=== PATIENT | male | born 1970 | race Caucasian/White ===

== ENCOUNTER 2018-08-14 19:41 | Observation (INO) | payer MEDICARE, MEDICAID ==
[~2018-08-14] VITALS: Ht 182.9 cm; Wt 132.9 kg
[~2018-08-14 19:41] MED LIST: AMBIEN5 MG PO; AMOXICILLIN500 MG PO; BAYER ADVANCED325 MG PO; CARVEDILOL25 MG PO; CELEXA40 M1 PO; HUMALOG KWI100 MG/ML SC; LANTUS100 MG/ML SC; LEVAQUIN500 MG PO; LIPITOR20 M1 PO; LISINOPRIL20 MG PO; LORTAB 10-325 M1 TAB PO; LORTAB 5/3255 MG PO; NOVOLIN 70/30 SC; NOVOLOG MIX SC; PERCOCET 10/31 COMBO PO; PLAVIX75 MG PO; ULTRAM50 M1 PO; ULTRAM50 MG PO; XANAX0.25 MG PO
--- NOTE | 2018-08-14 19:53 | NUR ---
BROUGHT IMMEDIATELY TO ROOM
--- NOTE | 2018-08-14 19:54 | NUR ---
PT. WITH C/O MIDSTERNAL CP STARTING A FEW HR'S AGO PT. STATES HIS CP IS NOW A 2ON ACSLE OF 1-10. SKIN WARM AND DRY TO TOUCH, COLOR WNL, RESP. EVEN AND UNLABORED. BILATERAL LUNG NEELY ARE CTA, NO EDEMA NOTED TO BLE.
[2018-08-14 20:19] LABS: HEMATOCRIT 43.4 % (39.0-50.0); HEMOGLOBIN 14.6 g/dl (14.0-18.0); IMMATURE GRANULOCYTES 0.5 % (0.0-5.0); MEAN CELL VOLUME 87.5 fL CALC (80.0-100.0); MEAN CORPUSCULAR HGB 29.4 pG CALC (26.0-32.0); MEAN CORPUSCULAR HGB CONC 33.6 g/L CALC (32.0-36.0); NEUT# 8.31 thou/uL (1.82-7.42); RED BLOOD COUNT 4.96 mill/uL (4.70-6.10); RED CELL DISTRI WIDTH 14.1 % (11.5-15.5)
[2018-08-14 20:32] LABS: ALBUMIN 4.2 g/dL (3.2-5.0); ALKALINE PHOSPHATASE 75 u/l (38-126); AMYLASE 77 u/l (30-110); ANION GAP 15 (6-22 (CALC)); BILIRUBIN, TOTAL 0.5 mg/dL (0.0-1.4); BUN 44 mg/dL (9-20); BUN/CREATININE RATIO 28 (12-20 (CALC)); CARBON DIOXIDE 25 mmol/l (22-30); CHLORIDE 105 mmol/l (95-108); CREATININE 1.6 mg/dL (0.7-1.3); GFR 46 ML/MIN (>=60 (CALC)); GFR FOR AFR.AMER. 56 ML/MIN (>=60 (CALC)); LIPASE 179 u/l (23-300); SGOT/AST 17 u/l (17-59); SODIUM 140 mmol/l (137-146); TOTAL PROTEIN 7.4 g/dL (6.3-8.2)
--- NOTE | 2018-08-14 20:36 | NUR ---
NITROGLYCERIN OINT APPLIED PER MD ORDER.
--- NOTE | 2018-08-14 20:36 | NUR ---
PT. STATES HIS CP IS COMPLETLY RESOLVED OF THIS TIME.
[2018-08-14 20:40] LABS: MYOGLOBIN 145 ng/mL (0 - 121)
[2018-08-14 20:45] LABS: POTASSIUM 5.2 mmol/l (3.5-5.1)
[2018-08-14] MEDS ORDERED: BELSOMRA5 MG PO (20:45)
[2018-08-14] MEDS ORDERED: BASAGLAR K100 UNIT/M SC (20:46)
[2018-08-14] MEDS ORDERED: FENOFIBRATE145 MG PO (20:47)
[2018-08-14] MEDS ORDERED: [UNRECOGNIZED DRUG - SUPPLY] PO (20:47)
[2018-08-14] MEDS ORDERED: TIZANIDINE HCL4 M1 PO (20:48)
[2018-08-14] MEDS ORDERED: VIIBRYD20 MG PO (20:48)
[2018-08-14] MEDS ORDERED: FUROSEMIDE20 MG PO (20:49)
[2018-08-14] MEDS ORDERED: LISINOPRIL10 MG PO (20:50)
[2018-08-14 20:54] LABS: ACT PARTIAL THROMBO TIME 24.5 SECONDS (20.0-32.5); PROTHROMBIN TIME 10.6 SECONDS (9.0-12.5)
--- NOTE | 2018-08-14 21:36 | NUR ---
PT. REMAINS CP FREE AT THIS TIME.
--- NOTE | 2018-08-14 22:40 | NUR ---
PT. C/O MD NAHEED AWARE.
--- NOTE | 2018-08-14 22:57 | NUR ---
PO PAIN MED GIVEN PER MD ORDER.
--- NOTE | 2018-08-14 22:58 | NUR ---
MEDICATED PT WITH PAIN MEDICATION PER MD ORDERS AND MAR. LIGHTS TURND OFFF IN ROOM FOR PT COMFORT. EXPLAINED THAT THE WAIT TO GO UPSTAIRS WOULD BE A LITTLE LONGER. PT AND SPOUSE VERBALIZED UNDERSTANDING
--- NOTE | 2018-08-14 23:22 | NUR ---
Admission Note Report Given to: LANDRY MENDEZ Transported by: Wheelchair X Stretcher Transported with: X Nurse Transporter X Patent IV O2 X Fur Examiner
--- NOTE | 2018-08-14 23:22 | NUR ---
PT. TAKEN TO [place] FLOOR VIA STRETCHER.
[2018-08-14 23:42] VITALS: BP 137/74
--- NOTE | 2018-08-15 | NUR ---
PATIENT ADMITTED FROM ER VIA STRETCHER WITH ER STAFF IN ATTENDANCE. PATIENT ABLE TO GO TO STANDING SCALE AND THEN TO BED. STEADY GAIT. PATIENT IS AWAKE ALERT AND ORIENTEDX3. PATIENT DENIES ANY PAIN AT THIS TIME. NO SOB NOTED. VS TAKEN AND RECORDED. PATIENT STATES THAT HE HAS HISTORY OF MRSA AND NASAL SWAB OBTAINED. VOIDED TERRI URINE IN URINAL AND URINE SPEC OBTAINED AND SENT TO LAB. PATIENT PLACED ON CONTACT PRECAUTIONS FOR H/O MRSA. PATIENT WITH HISTORY OF DIAB,HEART DIEASE, HTN, RENAL INSUFFIENCY, DEPRESSION AND ANXIETY. HX OF CABG AND CARDIAC STENTS. PATIENT WITH IV SITE TO LEFT AC-SITE APPEARS HEALTHY AT THIS TIME. LUNGS ARE CLEAR. ORIENTED PATIENT TO ROOM AND SURROUNDINGS. INSTRUCTED ON USE OF NURSE CALL LIGHT AND TV REMOTE. CALL LIGHT IN REACH. WILL CONT TO MONITOR. IT. [PATIENT IS
[2018-08-15 01:28] LABS: URINE BILIRUBIN - DIPSTICK NEGATIVE (NEGATIVE); URINE BLOOD DIPSTICK MODERATE (NEGATIVE); URINE CLARITY SL CLOUDY; URINE COLOR YELLOW; URINE GLUCOSE - DIPSTICK 100 mg/dL (NEGATIVE); URINE KETONE NEGATIVE (NEGATIVE); URINE LEUK ESTERASE NEGATIVE (NEGATIVE); URINE NITRITE - DIPSTICK NEGATIVE (Negative); URINE PH 5.5 (4.5-8.0); URINE PROTEIN - DIPSTICK 30 mg/dL (NEG-TRACE); URINE UROBILINOGEN - DIPSTICK 0.2 E.U./dL (0.2)
[2018-08-15 01:35] LABS: URINE SQUAMOUS EPITHELIAL CELL FEW EPI/hpf (0-FEW)
[2018-08-15 01:36] LABS: URINE BACTERIA FEW hpf
[2018-08-15 04:25] VITALS: BP 159/70
--- NOTE | 2018-08-15 04:51 | NUR ---
PATIENT RESTING IN BED-C/O SEVERE HEADACHE. NITOR OINT PATCH REMOVED AND PATIENT MEDICATED WITH TYLENOL 650MG PO FOR HEADACHE. TELE MONITOR IN PLACE. DENIES ANY CHEST PAIN. CALL LIGHT IN REACH. WILL CONT TO MONITOR.
--- NOTE | 2018-08-15 07:20 | NUR ---
REPORT RECIEVED FROM LANDRY MENDEZ. PT SITTING ON SIDE OF BED. NO S/S OF DISTRESS NOTED. PT DENIES ANY NEEDS AT THIS TIME. CALL LIGHT IN REACH. WILL CONTINUE TO MONITOR.
[2018-08-15 07:45] VITALS: BP 141/59
--- NOTE | 2018-08-15 07:45 | NUR ---
PT ASSESSMENT COMPLETE. PT A/O X3. SPEECH IS CLEAR. RESP EVEN AND UNLABORED. LUNG SOUNDS CLEAR. TELE IN PLACE. NO C/O CHEST PAIN. ABDOMEN ROUND, SOFT. BOWEL SOUNDS ACTIVE X4. STRONG RADIAL AND PEDAL PULSES. #20 RAC SL. FLUSHED AND PATENT. IV SITE APPEARS HEALTHY. PLAN OF CARE DISCUSSED. PT STATES UNDERSTANDING. SAFETY PRECAUTIONS IN PLACE. CALL LIGHT IN REACH. PT DENIES ANY NEEDS AT THIS TIME. WILL CONTINUE TO MONITOR.
--- NOTE | 2018-08-15 11:15 | NUR ---
AT BEDSIDE DISCUSSING POC.
[2018-08-15] MEDS ORDERED: ZITHROMAX250 MG PO (11:20)
--- NOTE | 2018-08-15 11:37 | NUR ---
Discharge instructions given. Patient verbalizes understanding of same. Discharged in stable condition via Ambulatory to Home with spouse. All belongings sent with pt. PT REFUSES WHEELCHAIR FOR DISCHARGE. PT ALSO REFUSED SCHEDULED NOVOLOG FOR BS OF 440.PRESCRIPTION DISCUSSED. PT VERBALIZES UNDERSTANDING. PT DENIES ANY OTHER NEEDS.
[2018-08-15 16:59] LABS: CHOLESTEROL HDL RATIO 5.4 (<4.4 (CALC))
== END 2018-08-15 11:37 | disposition home or self-care (01) ==
LOC: ED 19:41 → ED-I 22:00 → ED 22:34 → MS2 22:35
PROVIDERS: Emergency Medicine; Nurse Practitioner Family; ADMIT Internal Medicine; ATTEND Internal Medicine
DX: R07.89 Other chest pain (principal); J20.9 Acute bronchitis, unspecified; I25.10 Atherosclerotic heart disease of native coronary artery without angina pectoris; I10 Essential (primary) hypertension; E11.65 Type 2 diabetes mellitus with hyperglycemia; E11.40 Type 2 diabetes mellitus with diabetic neuropathy, unspecified; E11.21 Type 2 diabetes mellitus with diabetic nephropathy; E78.5 Hyperlipidemia, unspecified; F41.0 Panic disorder [episodic paroxysmal anxiety]; F17.210 Nicotine dependence, cigarettes, uncomplicated; Z95.1 Presence of aortocoronary bypass graft; Z95.5 Presence of coronary angioplasty implant and graft; Z79.4 Long term (current) use of insulin; Z91.14 Patient's other noncompliance with medication regimen

== ENCOUNTER → 2018-12-27 | Outpatient (REF) | payer MEDICARE, MEDICAID ==
[~2018-12-27] MED LIST changes: +AMLODIPINE5 MG PO; +BASAGLAR K100 UNIT/M SC; +BELSOMRA5 MG PO; +FENOFIBRATE145 MG PO; +FUROSEMIDE20 MG PO; +LISINOPRIL10 MG PO; +TIZANIDINE HCL4 M1 PO; +TRAZODONE50 MG PO; +VIIBRYD20 MG PO; +ZITHROMAX250 MG PO; +ZOLPIDEM10 MG PO; +[UNRECOGNIZED DRUG - SUPPLY] PO
[2018-12-27 10:17] LABS: IMMATURE GRANULOCYTES 0.6 % (0.0-5.0); MEAN CORPUSCULAR HGB CONC 32.1 g/L CALC (32.0-36.0); NEUT# 4.76 thou/uL (1.82-7.42); RED BLOOD COUNT 6.01 mill/uL (4.70-6.10); RED CELL DISTRI WIDTH 16.2 % (11.5-15.5)
[2018-12-27 10:18] LABS: HEMATOCRIT 48.6 % (39.0-50.0); HEMOGLOBIN 15.6 g/dl (14.0-18.0); MEAN CELL VOLUME 80.9 fL CALC (80.0-100.0)
[2018-12-27 11:28] LABS: URINE BILIRUBIN - DIPSTICK NEGATIVE (NEGATIVE); URINE BLOOD DIPSTICK MODERATE (NEGATIVE); URINE COLOR YELLOW; URINE GLUCOSE - DIPSTICK NEGATIVE (NEGATIVE); URINE KETONE NEGATIVE (NEGATIVE); URINE LEUK ESTERASE NEGATIVE (Negative); URINE NITRITE - DIPSTICK NEGATIVE (Negative); URINE PH 5.5 (4.5-8.0); URINE PROTEIN - DIPSTICK 30 mg/dL (NEG-TRACE); URINE SPECIFIC GRAVITY 1.025; URINE UROBILINOGEN - DIPSTICK 0.2 E.U./dL (0.2)
[2018-12-27 11:29] LABS: URINE CLARITY SL CLOUDY
[2018-12-27 11:30] LABS: URINE EPITHELIAL CELLS FEW EPI/hpf (0-FEW); URINE MUCUS FEW hpf (NONE-FEW)
[2018-12-27 11:58] LABS: ALBUMIN 3.8 g/dL (3.2-5.0); CREATININE 1.5 mg/dL (0.7-1.3)
[2018-12-27 11:59] LABS: POTASSIUM 5.3 mmol/l (3.5-5.1)
== END | disposition home or self-care (01) ==
LOC: LAB 09:41
PROVIDERS: ATTEND Internal Medicine Nephrology
DX: N18.3 Chronic kidney disease, stage 3 (moderate) (principal); D63.1 Anemia in chronic kidney disease; N25.81 Secondary hyperparathyroidism of renal origin

== ENCOUNTER 2019-02-06 20:34 | Observation (INO) | payer MEDICARE, MEDICAID ==
[~2019-02-06] VITALS: Ht 182.9 cm; Wt 130.0 kg
[~2019-02-06 20:34] MED LIST changes: -AMLODIPINE5 MG PO; -TRAZODONE50 MG PO; -ZOLPIDEM10 MG PO
--- NOTE | 2019-02-06 20:35 | NUR ---
Pt immediately to room # 6 via W/C. Pt placed on cardiac, SAO2, and BP monitors.
--- NOTE | 2019-02-06 20:36 | NUR ---
PT. WITH C/O FEELING WEAK AND DIZZY SINCE THIS AM.
[2019-02-06 21:24] LABS: HEMATOCRIT 42.9 % (39.0-50.0); HEMOGLOBIN 14.2 g/dl (14.0-18.0); IMMATURE GRANULOCYTES 0.5 % (0.0-5.0); MEAN CELL VOLUME 79.4 fL CALC (80.0-100.0); MEAN CORPUSCULAR HGB 26.3 pG CALC (26.0-32.0); MEAN CORPUSCULAR HGB CONC 33.1 g/L CALC (32.0-36.0); NEUT# 3.95 thou/uL (1.82-7.42); RED BLOOD COUNT 5.4 mill/uL (4.70-6.10); RED CELL DISTRI WIDTH 17.3 % (11.5-15.5)
--- NOTE | 2019-02-06 21:28 | NUR ---
IV PAIN MED GIVEN PER MD ORDER.
[2019-02-06 21:46] LABS: ALBUMIN 3.9 g/dL (3.2-5.0); ALKALINE PHOSPHATASE 118 u/l (38-126); BILIRUBIN, TOTAL 0.3 mg/dL (0.0-1.4); BUN 69 mg/dL (9-20); BUN/CREATININE RATIO 51 (12-20 (CALC)); CHLORIDE 110 mmol/l (95-108); CREATININE 1.4 mg/dL (0.7-1.3); GFR 54 ML/MIN (>=60 (CALC)); GFR FOR AFR.AMER. > 60 ML/MIN (>=60 (CALC)); POTASSIUM 5.1 mmol/l (3.5-5.1); SGOT/AST 18 u/l (17-59); SODIUM 137 mmol/l (137-146); TOTAL PROTEIN 6.9 g/dL (6.3-8.2)
[2019-02-06 21:48] LABS: ANION GAP 16 (6-22 (CALC)); CARBON DIOXIDE 16 mmol/l (22-30)
[2019-02-06 21:55] LABS: MYOGLOBIN 140 ng/mL (0 - 121)
[2019-02-06 22:08] LABS: URINE BILIRUBIN - DIPSTICK NEGATIVE (NEGATIVE); URINE BLOOD DIPSTICK MODERATE (NEGATIVE); URINE COLOR YELLOW; URINE GLUCOSE - DIPSTICK 100 mg/dL (NEGATIVE); URINE KETONE NEGATIVE (NEGATIVE); URINE LEUK ESTERASE NEGATIVE (NEGATIVE); URINE NITRITE - DIPSTICK NEGATIVE (Negative); URINE PH 5.5 (4.5-8.0); URINE PROTEIN - DIPSTICK 30 mg/dL (NEG-TRACE); URINE SPECIFIC GRAVITY >=1.030; URINE UROBILINOGEN - DIPSTICK 0.2 E.U./dL (0.2)
[2019-02-06] MEDS ORDERED: ZOLPIDEM10 MG PO (22:08)
[2019-02-06] MEDS ORDERED: AMLODIPINE5 MG PO (22:09)
[2019-02-06] MEDS ORDERED: TRAZODONE50 MG PO (22:10)
--- NOTE | 2019-02-06 22:11 | NUR ---
PT. STATES HIS NECK PAIN IS COMPLETLY RELIEVED OF THIS TIME.
[2019-02-06 22:18] LABS: URINE RBC 0-2 RBC/hpf (0-5); URINE SQUAMOUS EPITHELIAL CELL RARE EPI/hpf (0-FEW)
--- NOTE | 2019-02-06 22:31 | NUR ---
IVF STARTED PER MD ORDER.
--- NOTE | 2019-02-06 22:45 | NUR ---
MD IN ROOM TO DISCUSS CLINICAL FINDINGS, PT. VERBALIZED UNDERSTANDING. PT. ALSO MADE AWARE OF ADMISSION.
--- NOTE | 2019-02-06 23:19 | NUR ---
Admission Note Report Given to: TOMMIE RN Transported by: Wheelchair X Stretcher Transported with: X Nurse Transporter X Patent IV O2 X Small Engine Technician
--- NOTE | 2019-02-06 23:33 | NUR ---
IV ABT. STARTED PER MD ORDER.
--- NOTE | 2019-02-06 23:38 | NUR ---
PT. TO ICU VIA STRETCHER, NO C/O.
--- NOTE | 2019-02-06 23:50 | NUR ---
PT ARIVED TO ROOM VIA STRETCHER ACCOMANIED BY FRANCO RN, AND . ALERT AND ORIENTED. PT AMBULATED FROM STRETCHER TO SCALE TO BED, GATE STEADY. RESPIRATIONS EVEN AND UNLABORED, ON RA, LUNGS SOUND CLEAR/DIMINISHED. DRY COUGH NOTED. PEDAL PULSES STRONG. PT DENIES ANY PAIN OR DISCOMFORT AT THIS TIME. TELE MONITOR IN PLACE. IV # 20 LAC PATENT, APPEARS HEALTHY. PT ORIENTED TO ROOM AND CALL [employer] [facility]. PROVIDED PT WITH CUP OF WATER AND BLANKET PER REQUEST. CALL [employer] WITHIN REACH. SAFETY PRECAUTIONS IN PLACE. WILL CONTINUE TO MONITOR.
[2019-02-07 00:28] VITALS: BP 146/76
--- NOTE | 2019-02-07 04:22 | NUR ---
PT RESTING IN BED WATCHING TV. RESPIRATIONS EVEN AND UNLABORED, ON RA. SAFETY PRECAUTIONS IN PLACE. WILL CONTINUE TO MONITOR.
[2019-02-07 05:29] VITALS: BP 138/65
--- NOTE | 2019-02-07 07:00 | NUR ---
PT REPORT RECIEVED FROM VANESSA REILLY. PT TRANSFERRED FROM ICU @2535. V/S DONE. PT A/O X3. SPEECH IS CLEAR. PT HAVING SLIGHT NAUSEA, NO VOMITING. ENVIRONMENTAL MEASURES IN PLACE; LIGHTS DIMMED FOR COMFORT. RESP EVEN AND UNLABORED. LUNG SOUNDS CLEAR. TELE TO BE APPLIED. BOWEL SOUNDS ACTIVE X4. STRONG RADIAL AND PEDAL PULSES. #20 LAC SL. FLUSHED AND PATENT. SITE APPEARS HEALTHY. PT DENIES ANY PAIN OR NEEDS. POC DISCUSSED. SAFETY PRECAUTIONS IN PLACE. TAZ LIGHT IN REACH. WILL CONTINUE TO MONITOR.
[2019-02-07 07:41] VITALS: BP 113/60
--- NOTE | 2019-02-07 11:06 | NUR ---
PT WATCHING TELEVISION. NO C/O PAIN, ANXIOUS TO GO HOME TODAY. TELE IN PLACE. CALL LIGHT IN REACH. WILL CONTINUE TO MONITOR.
[2019-02-07 11:17] VITALS: BP 124/74
--- NOTE | 2019-02-07 12:25 | NUR ---
D/C INSTRUCTIONS DISCUSSED W/ PT. PT STATES UNDERSTANDING. IV REMOVED. CATHETER INTACT. TELE REMOVED. PT GETTING DRESSED AT THIS TIME.
--- NOTE | 2019-02-07 12:31 | NUR ---
Discharge instructions given. Patient verbalizes understanding of same. Discharged in stable condition via Wheelchair to Home with family. All belongings sent with pt.
== END 2019-02-07 12:30 | disposition home or self-care (01) ==
LOC: ED 20:34 → ED-I 22:35 → ED 23:27 → ICU 23:28 → MS2 02-07 07:21
PROVIDERS: Emergency Medicine; ADMIT Internal Medicine; ATTEND Internal Medicine
DX: R07.89 Other chest pain (principal); M25.512 Pain in left shoulder; M25.511 Pain in right shoulder; I12.9 Hypertensive chronic kidney disease with stage 1 through stage 4 chronic kidney disease, or unspecified chronic kidney disease; M54.9 Dorsalgia, unspecified; E11.22 Type 2 diabetes mellitus with diabetic chronic kidney disease; N18.3 Chronic kidney disease, stage 3 (moderate); I25.10 Atherosclerotic heart disease of native coronary artery without angina pectoris; J44.9 Chronic obstructive pulmonary disease, unspecified; F41.1 Generalized anxiety disorder; F17.200 Nicotine dependence, unspecified, uncomplicated; E78.5 Hyperlipidemia, unspecified; Z72.89 Other problems related to lifestyle; Z95.5 Presence of coronary angioplasty implant and graft; Z95.1 Presence of aortocoronary bypass graft; R06.02 Shortness of breath

== ENCOUNTER 2024-10-02 19:07 | Emergency (ER) | payer MEDICARE, MEDICAID ==
[~2024-10-02] VITALS: Ht 182.9 cm; Wt 127.0 kg
[2024-10-02] VITALS (9 sets, daily range): BP systolic 128–154; BP diastolic 63–81
[~2024-10-02 19:07] MED LIST changes: +AMLODIPINE BESY10 MG PO; +AMLODIPINE5 MG PO; +APRESOLINE50 MG PO; +ASPIRIN81 MG PO; +ASPIRINCHW 81MG PO; +BUPROPION HCL150 MG PO; +CLOPIDOGREL75 MG PO; +CYCLOBENZAPRINE10 MG PO; +DOXYCYCLINE HY100 MG PO; +FARXIGA10 MG; +FLOVENT HF110 MCG/AC; +IPRATROPIU0.5 MG/3 M IN; +ISOSORBIDE MONO60 MG PO; +LASIX 20 MG TAB20 MG PO; +LEVEMIR100 UNIT; +LIPITOR80 M1 PO; +NITROGLYCERIN0.4 MG; +NITROSTAT0.4 MG SL; +OMEGA 31000 MG PO; +ONDANSETRON4 MG PO; +PERCOCET 5/325M1 TAB PO; +PROTONIX40 M2 PO; +REXULTI0.5 MG; +SEROQUEL100 MG PO; +TRAZODONE50 MG PO; +TRILEPTAL300 MG PO; +ZOLPIDEM10 MG PO
[2024-10-02] MEDS ORDERED: KETOROLAC TROMETHAMINE 30 MG/ML SDV IV ONE (19:25)
[2024-10-02] MEDS ORDERED: CYCLOBENZAPRINE HCL 5 MG TAB PO ONE (19:25)
[2024-10-02] MEDS ORDERED: ACETAMINOPHEN 500 MG TAB PO ONE (19:25)
[2024-10-02 19:43] LABS: BASO% 0.4 % (0-3); EOS% 3.7 % (0-8); HEMATOCRIT 51.6 % (39.0-50.0); HEMOGLOBIN 16.6 g/dl (14.0-18.0); IMMATURE GRANULOCYTES 0.7 % (0.0-5.0); LYMPH% 19.5 % (15-41); MEAN CELL VOLUME 94.5 fL CALC (80.0-100.0); MEAN CORPUSCULAR HGB 30.4 pG CALC (26.0-32.0); MEAN CORPUSCULAR HGB CONC 32.2 g/dL CAL (32.0-36.0); NEUT# 6.16 thou/uL (1.82-7.42); NEUT% 67.7 % (42-76); RED BLOOD COUNT 5.46 mill/uL (4.70-6.10)
[2024-10-02 19:58] LABS: ALBUMIN 4.1 g/dL (3.2-5.0); BILIRUBIN, TOTAL 0.5 mg/dL (0.2-1.3); CREATININE 1.7 mg/dL (0.7-1.3); POTASSIUM 4.5 mmol/l (3.5-5.1); TOTAL PROTEIN 7.5 g/dL (6.3-8.2)
[2024-10-02 19:59] LABS: D-DIMER 0.69 mg/L (0.19-0.60)
[2024-10-02 20:14] LABS: ACT PARTIAL THROMBO TIME 25.4 SECONDS (20.0-32.5); PROTHROMBIN TIME 10.8 SECONDS (9.0-12.5)
[2024-10-02] MEDS ORDERED: TORADOL PO (21:12)
[2024-10-02] MEDS ORDERED: FLEXERIL5 M1 PO (21:12)
[2024-10-02 21:18] LABS: URINE BILIRUBIN - DIPSTICK Negative (NEGATIVE); URINE BLOOD DIPSTICK Moderate (NEGATIVE); URINE GLUCOSE - DIPSTICK >=1000 mg/dL (NEGATIVE); URINE KETONE Negative (NEGATIVE); URINE LEUK ESTERASE Trace (NEGATIVE); URINE PROTEIN - DIPSTICK >=300 mg/dL (NEG-TRACE); URINE SPECIFIC GRAVITY 1.025; URINE UROBILINOGEN - DIPSTICK 0.2 E.U./dL (0.2)
[2024-10-02 21:22] LABS: URINE COLOR Yellow; URINE NITRITE - DIPSTICK Positive (Negative)
[2024-10-02 21:24] LABS: URINE RENAL EPITHELIAL CELLS FEW hpf; URINE WBC >100 WBC/hpf (0-5)
[2024-10-02 21:25] LABS: URINE BACTERIA FEW hpf
== END 2024-10-02 21:52 | disposition home or self-care (01) ==
LOC: ED 19:07
PROVIDERS: Family Medicine
DX: R07.89 Other chest pain (principal); E11.9 Type 2 diabetes mellitus without complications; I10 Essential (primary) hypertension; Z95.1 Presence of aortocoronary bypass graft; F17.200 Nicotine dependence, unspecified, uncomplicated